=== PATIENT | male | born 1960 | race Caucasian/White ===

== ENCOUNTER 2017-08-17 17:03 | Emergency (ER) | payer SELFPAY ==
--- NOTE | 2017-08-17 18:39 | ER Document Report ---
HPI - HPI Patient complains to provider of: Dental infection Pain Level: 4 Context: Patient is a 57-year-old male complaining of pain and swelling to his left upper jaw. Patient has a remnant of a tooth #14. Associated Symptoms: None Exacerbated by: Food Relieved by: Denies Similar symptoms previously: No Recently seen / treated by doctor: No - ROS Systems Reviewed and Negative: Yes All other systems reviewed and negative - CONSTITUTIONAL Constitutional: DENIES: Fever, Chills Past Medical History - General Information source: Patient - Social History Smoking Status: Current Every Day Smoker Frequency of alcohol use: None Drug Abuse: None Lives with: Family Family History: Reviewed & Not Pertinent Patient has suicidal ideation: No Patient has homicidal ideation: No Pulmonary Medical History: Reports: Hx COPD - Probable secondary to extensive smoking history Renal/ Medical History: Denies: Hx Peritoneal Dialysis Musculoskeltal Medical History: Reports Hx Arthritis, Reports Hx Musculoskeletal Deformity, Reports Hx Musculoskeletal Trauma Traumatic Medical History: Reports: Hx Fractures - Bilateral hips Past Surgical History: Reports: Hx Orthopedic Surgery - fx femur - Immunizations Hx Diphtheria, Pertussis, Tetanus Vaccination: Yes Hx Pneumococcal Vaccination: 03/21/00 Vertical Provider Document - CONSTITUTIONAL Agree With Documented VS: Yes Exam Limitations: No Limitations - INFECTION CONTROL TRAVEL OUTSIDE OF THE [place] IN LAST 30 DAYS: No - HEENT HEENT: Atraumatic, PERRLA Mouth Diagram: 1 - Gingival pain and swelling. No abscess. Advanced decay - NECK Neck: Normal Inspection, Supple - RESPIRATORY Respiratory: Breath Sounds Normal - CARDIOVASCULAR Cardiovascular: Regular Rate, Regular Rhythm - NEURO Level of Consciousness: Awake, Alert, Appropriate Course - Re-evaluation Re-evalutation: 08/17/17 18:36 History and physical are consistent with a dental infection. No abscess is visible at this time. Patient having no difficulty swallowing or talking. Patient is afebrile no signs of sepsis - Vital Signs Vital signs: Temp Pulse Resp BP Pulse Ox 98.9 F 92 20 119/69 91 L 08/17/17 17:14 08/17/17 17:14 08/17/17 17:14 08/17/17 17:14 08/17/17 17:14 Discharge - Discharge Clinical Impression: Dental infection Condition: Stable Disposition: HOME, SELF-CARE Instructions: [facility], Penicillin V K ([facility]), Oral Narcotic Medication ([facility]), Toothache ([facility]) Additional Instructions: Please take medications as prescribed Follow-up with dental for further evaluation and treatment Prescriptions: Oxycodone HCl/Acetaminophen [Percocet 5-325 mg Tablet] 1 - 2 tab PO Q4H PRN #12 tablet PRN Reason: Penicillin V Potassium [Penicillin Vk 500 mg Tablet] 500 mg PO QID #28 tablet Referrals: ILENE MILLER MD [Primary Care Provider] - Follow up as needed
[2017-08-17] MEDS ORDERED: OXYCODONE-ACETAMINOPHEN 5-325 MG TABLET PO ONE (18:42)
[2017-08-17] MEDS ORDERED: PENICILLIN V POTASSIUM 500 MG TABLET PO ONE (18:42)
[2017-08-17 18:50] VITALS: BP 129/75
== END 2017-08-17 18:54 | disposition home or self-care (01) ==
LOC: ER 17:03
DX: K04.7 Periapical abscess without sinus (principal); F17.200 Nicotine dependence, unspecified, uncomplicated; J44.9 Chronic obstructive pulmonary disease, unspecified
CPT/HCPCS: 99282

== ENCOUNTER 2017-11-22 13:55 | Emergency (ER) | payer SELFPAY ==
[2017-11-22] MEDS ORDERED: KETOROLAC TROMETHAMINE INJ/PF 30 MG/1 ML SDV IV ONE (14:53)
[2017-11-22 15:11] LABS: ABSOLUTE EOSINOPHILS # (AUTO) 0.1 10^3/uL (0.0-0.6); ABSOLUTE LYMPHOCYTES (AUTO) 1.5 10^3/uL (0.5-4.7); ABSOLUTE MONOCYTES (AUTO) 0.6 10^3/uL (0.1-1.4); ABSOLUTE NEUT (AUTO) 5.2 10^3/uL (1.7-8.2); BASOPHILS % (AUTO) 0.4 % (0-2); EOSINOPHILS % (AUTO) 1.6 % (0-6); HEMATOCRIT 47.2 % (37.9-51.0); HEMOGLOBIN 16.1 g/dL (13.5-17.0); LYMPHOCYTES % (AUTO) 20.1 % (13-45); MEAN CORPUSCULAR HEMOGLOBIN 31.9 pg (27.0-33.4); MEAN CORPUSCULAR HGB CONC 34.1 g/dL (32.0-36.0); MEAN CORPUSCULAR VOLUME 94 fl (80-97); MONOCYTES % (AUTO) 8.2 % (3-13); PLATELET COUNT 209 10^3/uL (150-450); RED BLOOD COUNT 5.05 10^6/uL (4.35-5.55); RED CELL DISTRIBUTION WIDTH 14.2 % (11.5-14.0); SEGMENTED NEUTROPHILS % (AUTO) 69.7 % (42-78); TOTAL CELLS COUNTED % (AUTO) 100 %; WHITE BLOOD COUNT 7.5 10^3/uL (4.0-10.5)
[2017-11-22 15:30] LABS: ANION GAP 10 (5-19); BLOOD UREA NITROGEN 13 mg/dL (7-20); CALCIUM 9.5 mg/dL (8.4-10.2); CARBON DIOXIDE 30 mmol/L (22-30); CHLORIDE 102 mmol/L (98-107); GLUCOSE 101 mg/dL (75-110); POTASSIUM 3.9 mmol/L (3.6-5.0)
[2017-11-22 15:38] LABS: APPEARANCE,URINE SLIGHTLY-CLOUDY; BILIRUBIN,URINE NEGATIVE (NEGATIVE); COLOR,URINE YELLOW; GLUCOSE, URINE NEGATIVE (NEGATIVE); KETONES,URINE NEGATIVE (NEGATIVE); LEUKOCYTE ESTERASE,URINE NEGATIVE (NEGATIVE); NITRITE,URINE NEGATIVE (NEGATIVE); PROTEIN,URINE NEGATIVE (NEGATIVE); URINE SPECIFIC GRAVITY 1.021
--- NOTE | 2017-11-22 16:06 | ER Document Report ---
ED General - General Chief Complaint: Testicular Swelling Stated Complaint: RIGHT TESTICULAR PAIN, SWELLING Time Seen by Provider: 11/22/17 14:31 TRAVEL OUTSIDE OF THE [place] IN LAST 30 DAYS: No - HPI Notes: 57-year-old male presents with progressively worsening right testicular swelling and pain for the past 3 days. Denies injury. Pain radiates into groin. Denies any penile discharge. No pain with urination or blood in urine. No fevers or chills. No new sexual partners. No similar symptoms in the past. - Related Data Allergies/Adverse Reactions: No Known Allergies Allergy (Verified 11/22/17 14:04) Past Medical History - Social History Smoking Status: Never Smoker Chew tobacco use (# tins/day): No Frequency of alcohol use: None Drug Abuse: None Family History: Reviewed & Not Pertinent Patient has suicidal ideation: No Patient has homicidal ideation: No Pulmonary Medical History: Reports: Hx COPD - Probable secondary to extensive smoking history Renal/ Medical History: Denies: Hx Peritoneal Dialysis Musculoskeletal Medical History: Reports Hx Arthritis, Reports Hx Musculoskeletal Deformity, Reports Hx Musculoskeletal Trauma Traumatic Medical History: Reports: Hx Fractures - Bilateral hips Past Surgical History: Reports: Hx Orthopedic Surgery - fx femur - Immunizations Hx Diphtheria, Pertussis, Tetanus Vaccination: Yes Hx Pneumococcal Vaccination: 03/21/00 Review of Systems - Review of Systems Notes: Constitutional: Negative for fever. HENT: Negative for sore throat. Eyes: Negative for visual changes. Cardiovascular: Negative for chest pain. Respiratory: Negative for shortness of breath. Gastrointestinal: Negative for abdominal pain, vomiting or diarrhea. Genitourinary: Negative for dysuria. Positive for right testicular pain and swelling Musculoskeletal: Negative for back pain. Skin: Negative for rash. Neurological: Negative for headaches, weakness or numbness. 10 point ROS negative except as marked above and in HPI. Physical Exam - Vital signs Vitals: Temp Pulse Resp BP Pulse Ox 98.2 F 88 20 118/68 92 11/22/17 14:23 11/22/17 14:23 11/22/17 14:23 11/22/17 14:23 11/22/17 14:23 - Notes Notes: PHYSICAL EXAMINATION: GENERAL: Well-appearing, well-nourished and in no acute distress. HEAD: Atraumatic, normocephalic. EYES: Pupils equal round and reactive to light, extraocular movements intact, conjunctiva are normal. ENT: nares patent, oropharynx clear without exudates. Moist mucous membranes. NECK: Normal range of motion, supple without lymphadenopathy LUNGS: Breath sounds clear to auscultation bilaterally and equal. No wheezes rales or rhonchi. HEART: Regular rate and rhythm, no chest wall tenderness ABDOMEN: Soft, mild right lower quadrant and inguinal tenderness, normoactive bowel sounds. No guarding, no rebound. No masses appreciated. : Enlarged right testicle compared to left. No scrotal swelling or edema. No warmth or erythema. No obvious epididymal pain. Normal testicular lie. No penile discharge or erythema. EXTREMITIES: Normal range of motion, no pitting or edema. No cyanosis. NEUROLOGICAL: Cranial nerves grossly intact. Normal speech, normal gait. Normal sensory and motor exams. PSYCH: Normal mood, normal affect. SKIN: Warm, Dry, normal turgor, no rashes or lesions noted. Course - Re-evaluation Re-evalutation: 11/22/17 16:51 Laboratory 11/22/17 11/22/17 11/22/17 14:54 14:54 14:54 WBC 7.5 RBC 5.05 Hgb 16.1 Hct 47.2 MCV 94 MCH 31.9 MCHC 34.1 RDW 14.2 H Plt Count 209 Seg Neutrophils % 69.7 Lymphocytes % 20.1 Monocytes % 8.2 Eosinophils % 1.6 Basophils % 0.4 Absolute Neutrophils 5.2 Absolute Lymphocytes 1.5 Absolute Monocytes 0.6 Absolute Eosinophils 0.1 Absolute Basophils 0.0 Sodium 142.0 Potassium 3.9 Chloride 102 Carbon Dioxide 30 Anion Gap 10 BUN 13 Creatinine 0.57 Est GFR ( Amer) > 60 Est GFR (Non-Af Amer) > 60 Glucose 101 Calcium 9.5 Urine Color YELLOW Urine Appearance SLIGHTLY-CLOUDY Urine pH 5.0 Ur Specific [place] 1.021 Urine Protein NEGATIVE Urine Glucose (UA) NEGATIVE Urine Ketones NEGATIVE Urine Blood SMALL H Urine Nitrite NEGATIVE Urine Bilirubin NEGATIVE Urine Urobilinogen 2.0 H Ur Leukocyte Esterase NEGATIVE Urine WBC (Auto) 2 Urine RBC (Auto) 1 Urine Mucus (Auto) MANY Urine Ascorbic Acid NEGATIVE Scrotum Ultrasound 11/22/17 14:35 IMPRESSION: Moderate right hydrocele 1.2 cm right epididymal cyst No ultrasound evidence of testicular torsion No evidence of torsion or infection. Given urology follow-up. Pain improved. At this time will discharge with return precautions and follow-up recommendations. Verbal discharge instructions given a the bedside and opportunity for questions given. Medication warnings reviewed. Patient is in agreement with this plan and has verbalized understanding of return precautions and the need for primary care follow-up in the next 24-72 hours. Voice dictation software was used. Chart was reviewed, but errors may exist. - Vital Signs Vital signs: Temp Pulse Resp BP Pulse Ox 98.0 F 85 18 115/65 100 11/22/17 16:29 11/22/17 16:29 11/22/17 16:29 11/22/17 16:29 11/22/17 16:29 - Laboratory Result Diagrams: 11/22/17 14:54 11/22/17 14:54 Laboratory results interpreted by me: 11/22/17 11/22/17 14:54 14:54 RDW 14.2 H Urine Blood SMALL H Urine Urobilinogen 2.0 H Discharge - Discharge Clinical Impression: Epididymal cyst Hydrocele Qualifiers: Hydrocele type: unspecified Qualified Code(s): N43.3 - Hydrocele, unspecified Condition: Stable Disposition: HOME, SELF-CARE Instructions: Hydrocele ([facility]) Additional Instructions: Follow-up with urology for further recommendations. Return for worsening or concerning symptoms. Take naproxen as needed for pain. Referrals: ILENE MILLER MD [Primary Care Provider] - Follow up as needed ANDREAS BALLESTEROS MD [[facility]] - Follow up in 3-5 days
[2017-11-22 16:30] VITALS: BP 115/65
--- NOTE | 2017-11-22 16:42 | RADIOLOGY REPORT (SQ) ---
EXAM DESCRIPTION: U/S SCROTUM W/DOPPLER COMPLETED DATE/TIME: 11/22/2017 4:33 pm REASON FOR STUDY: Right testicular pain and swelling COMPARISON: None. TECHNIQUE: Static and realtime barnes scale imaging of the scrotum and testes. Selected color Doppler and spectral images recorded to document blood flow. LIMITATIONS: None. FINDINGS: RIGHT: TESTICLE: Normal size, 4.8 x 4.3 x 3.2 cm in size. Normal echotexture. Normal blood flow. No mass. EPIDIDYMIS: 1.2 cm epididymal cyst. Otherwise unremarkable HYDROCELE OR VARICOCELE: Moderate hydrocele HERNIA OR EXTRA-TESTICULAR MASS: No. OTHER: No other significant finding. LEFT: TESTICLE: Normal size, 3.9 x 3.2 x 2.4 cm in size. Normal echotexture. Normal blood flow. No mass. EPIDIDYMIS: Normal. HYDROCELE OR VARICOCELE: Small hydrocele HERNIA OR EXTRA-TESTICULAR MASS: No. OTHER: No other significant finding. IMPRESSION: Moderate right hydrocele 1.2 cm right epididymal cyst No ultrasound evidence of testicular torsion TECHNICAL DOCUMENTATION: JOB ID: [id number]- All Rights Reserved Reading location - IP/workstation name: [email or web address]
== END 2017-11-22 17:17 | disposition home or self-care (01) ==
LOC: ER 13:55
DX: N50.3 Cyst of epididymis (principal); N43.3 Hydrocele, unspecified; R10.813 Right lower quadrant abdominal tenderness
CPT/HCPCS: 99284; 96374; 36415; 85025; 80048; 81001; 76870; 93976; J1885

== ENCOUNTER 2018-07-09 10:02 | Emergency (ER) | payer SELFPAY ==
[2018-07-09] MEDS ORDERED: ONDANSETRON HCL INJ/PF 4 MG/2 ML SDV IV ONE (10:19)
--- NOTE | 2018-07-09 10:22 | ER Document Report ---
ED Medical Screen (RME) - General Chief Complaint: Abdominal Pain Stated Complaint: RIGHT KNEE PAIN Time Seen by Provider: 07/09/18 10:11 Primary Care Provider: ILENE MILLER MD [Primary Care Provider] - Follow up as needed Mode of Arrival: Ambulatory Information source: Patient Notes: Patient presents complaining of right knee pain for the past 2 days. Patient reports fever of 101-102 2 days ago. Patient has had nausea with retching over this time. Patient denies any injury to the knee. Patient complains of redness overlying the right knee and to the right upper thigh area. Patient does complain of some generalized lower abdominal pain. Patient does have a history of a AAA, hypertension, COPD. I have greeted and performed a rapid initial assessment of this patient. A comprehensive ED assessment and evaluation of the patient, analysis of test results and completion of the medical decision making process will be conducted by additional ED providers. TRAVEL OUTSIDE OF THE [place] IN LAST 30 DAYS: No - Related Data Allergies/Adverse Reactions: No Known Allergies Allergy (Verified 07/09/18 10:03) Past Medical History - Social History Chew tobacco use (# tins/day): No Frequency of alcohol use: None Drug Abuse: None - Past Medical History Cardiac Medical History: Reports: Hx Hypertension Pulmonary Medical History: Reports: Hx COPD - Probable secondary to extensive smoking history Renal/ Medical History: Denies: Hx Peritoneal Dialysis Musculoskeltal Medical History: Reports Hx Arthritis, Reports Hx Musculoskeletal Deformity, Reports Hx Musculoskeletal Trauma Traumatic Medical History: Reports: Hx Fractures - Bilateral hips Past Surgical History: Reports: Hx Orthopedic Surgery - fx femur bilateral - Immunizations Hx Diphtheria, Pertussis, Tetanus Vaccination: Yes Physical Exam - Vital signs Vitals: Temp Pulse Resp BP Pulse Ox 97.3 F 86 18 99/66 L 96 07/09/18 10:07 07/09/18 10:07 07/09/18 10:07 07/09/18 10:07 07/09/18 10:07 - Extremities General lower extremity: Tender - Right knee tenderness with overlying erythema and papular skin lesions. Patient with large erythematous tender lesion to right medial thigh. Course - Vital Signs Vital signs: Temp Pulse Resp BP Pulse Ox 97.3 F 86 18 99/66 L 96 07/09/18 10:07 07/09/18 10:07 07/09/18 10:07 07/09/18 10:07 07/09/18 10:07 Doctor's Discharge - Discharge Referrals: ILENE MILLER MD [Primary Care Provider] - Follow up as needed
[2018-07-09 10:56] LABS: ABSOLUTE LYMPHOCYTES (AUTO) 1.4 10^3/uL (0.5-4.7); ABSOLUTE MONOCYTES (AUTO) 0.7 10^3/uL (0.1-1.4); ABSOLUTE NEUT (AUTO) 5.8 10^3/uL (1.7-8.2); BASOPHILS % (AUTO) 0.4 % (0-2); EOSINOPHILS % (AUTO) 0.6 % (0-6); HEMATOCRIT 47.4 % (37.9-51.0); HEMOGLOBIN 16.5 g/dL (13.5-17.0); LYMPHOCYTES % (AUTO) 17.6 % (13-45); MEAN CORPUSCULAR HEMOGLOBIN 32.9 pg (27.0-33.4); MEAN CORPUSCULAR HGB CONC 34.9 g/dL (32.0-36.0); MEAN CORPUSCULAR VOLUME 94 fl (80-97); MONOCYTES % (AUTO) 9.3 % (3-13); PLATELET COUNT 205 10^3/uL (150-450); RED BLOOD COUNT 5.03 10^6/uL (4.35-5.55); RED CELL DISTRIBUTION WIDTH 14.4 % (11.5-14.0); SEGMENTED NEUTROPHILS % (AUTO) 72.1 % (42-78); TOTAL CELLS COUNTED % (AUTO) 100 %
[2018-07-09 10:59] LABS: APPEARANCE,URINE SLIGHTLY-CLOUDY; BILIRUBIN,URINE SMALL (NEGATIVE); COLOR,URINE AMBER; GLUCOSE, URINE NEGATIVE (NEGATIVE); KETONES,URINE TRACE mg/dL (NEGATIVE); LEUKOCYTE ESTERASE,URINE NEGATIVE (NEGATIVE); NITRITE,URINE NEGATIVE (NEGATIVE); PROTEIN,URINE 30 mg/dL (NEGATIVE); URINE SPECIFIC GRAVITY 1.028
[2018-07-09 11:17] LABS: ALANINE AMINOTRANSFERASE 18 U/L (21-72); ALKALINE PHOSPHATASE 69 U/L (38-126); ANION GAP 8 (5-19); ASPARTATE AMINO TRANSFERASE 17 U/L (17-59); BILIRUBIN,DIRECT 0.4 mg/dL (0.0-0.4); BILIRUBIN,TOTAL 0.5 mg/dL (0.2-1.3); BLOOD UREA NITROGEN 16 mg/dL (7-20); CALCIUM 9.4 mg/dL (8.4-10.2); CARBON DIOXIDE 30 mmol/L (22-30); CHLORIDE 98 mmol/L (98-107); GLUCOSE 118 mg/dL (75-110); POTASSIUM 4.3 mmol/L (3.6-5.0); SODIUM 135.9 mmol/L (137-145); TOTAL PROTEIN 7.2 g/dL (6.3-8.2)
--- NOTE | 2018-07-09 11:18 | RADIOLOGY REPORT (SQ) ---
EXAM DESCRIPTION: KNEE RIGHT 4 VIEWS COMPLETED DATE/TIME: 07/09/2018 11:11 am REASON FOR STUDY: r knee pain COMPARISON: None. NUMBER OF VIEWS: Four views. TECHNIQUE: AP, lateral, and both oblique radiographic images acquired of the right knee. LIMITATIONS: None. FINDINGS: MINERALIZATION: Osteopenia. BONES: No acute fracture. IM [place] identified in the distal femur. JOINT: Possible loose bodies in the joint. SOFT TISSUES: Marked prepatellar soft tissue swelling. OTHER: No other significant finding. IMPRESSION: Marked prepatellar soft tissue swelling. Possible intra-articular loose bodies. TECHNICAL DOCUMENTATION: JOB ID: [id number] [employer]- All Rights Reserved Reading location - IP/workstation name: [email or web address]
[2018-07-09] MEDS ORDERED: CLINDAMYCIN 600 MG/D5W RTU 600 MG/50 ML RTUPB IV ONE (11:26)
--- NOTE | 2018-07-09 11:33 | ER Document Report ---
ED General - General Chief Complaint: Abdominal Pain Stated Complaint: RIGHT KNEE PAIN Time Seen by Provider: 07/09/18 10:11 Primary Care Provider: ILENE MILLER MD [Primary Care Provider] - Follow up as needed Mode of Arrival: Ambulatory TRAVEL OUTSIDE OF THE [place] IN LAST 30 DAYS: No - HPI Notes: Patient is a 58-year-old male with a history of hypertension who presents to the emergency department complaining of right knee redness and swelling that began 3 days ago. Patient also states that he noticed an area of redness and soreness to his right proximal medial thigh. Patient states that he has not noticed any streaking. He had one episode of vomiting on Tuesday, but nothing since then. He has been able to eat and drink without difficulty. He is urinating normally and having normal bowel movements. He is unaware of any insect bite or tick bite. Patient states that he is not in the [place] or in tall grass. Denies drug allergies. No h/o MRSA. Denies any headache, fever, neck pain, URI, sore throat, chest pain, palpitations, syncope, cough, shortness of breath, wheeze, dyspnea, abdominal pain, nausea/vomiting/diarrhea, urinary retention, dysuria, hematuria. - Related Data Allergies/Adverse Reactions: No Known Allergies Allergy (Verified 07/09/18 10:03) Past Medical History - General Information source: Patient - Social History Smoking Status: Current Every Day Smoker Chew tobacco use (# tins/day): No Frequency of alcohol use: None Drug Abuse: None Family History: Reviewed & Not Pertinent Patient has suicidal ideation: No Patient has homicidal ideation: No - Past Medical History Cardiac Medical History: Reports: Hx Hypertension Pulmonary Medical History: Reports: Hx COPD - Probable secondary to extensive smoking history Renal/ Medical History: Denies: Hx Peritoneal Dialysis Musculoskeletal Medical History: Reports Hx Arthritis, Reports Hx Musculoskeletal Deformity, Reports Hx Musculoskeletal Trauma Traumatic Medical History: Reports: Hx Fractures - Bilateral hips Past Surgical History: Reports: Hx Orthopedic Surgery - fx femur bilateral - Immunizations Hx Diphtheria, Pertussis, Tetanus Vaccination: Yes Hx Pneumococcal Vaccination: 03/21/00 Review of Systems - Review of Systems -: Yes All other systems reviewed and negative Physical Exam - Vital signs Vitals: Temp Pulse Resp BP Pulse Ox 97.3 F 86 18 99/66 L 96 07/09/18 10:07 07/09/18 10:07 07/09/18 10:07 07/09/18 10:07 07/09/18 10:07 - Notes Notes: PHYSICAL EXAMINATION: GENERAL: Well-appearing, well-nourished and in no acute distress. LUNGS: Breath sounds clear to auscultation bilaterally and equal. No wheezes rales or rhonchi. HEART: Regular rate and rhythm without murmurs, rubs, gallops. Musculoskeletal: Rt knee: No obvious ecchymosis, effusion, or deformity. FROM to passive/active and flexion >90 w/o difficulty or tenderness. Strength 5+/5. N/V intact distal. No bony tenderness. Ligamentous grossly stable, limited exam with larger leg size. Cristobal grossly negative. Patellar grind negative. No calf tenderness. + erythema and warmth pre-patellar on exam. No fluctuance or streaks. US utilized which did not show any abscess/fluid pocket. N/V intact distal. Rt thigh: there is a macular mildly erythemic area noted to the anteromedial thigh with + tenderness (approx 6"x3") and warmth. No central clearing or bull's eye appearance. No flucutance noted or abscess. US was utilized and did not reveal any abscess/fluid pocket. Extremities: No cyanosis, clubbing, or edema b/l. Peripheral pulses 2+. Capillary refill less than 3 seconds. Brianna neg b/l. NEUROLOGICAL: Normal speech, normal gait. Normal sensory, motor exams PSYCH: Normal mood, normal affect. SKIN: Warm, Dry, normal turgor, no rashes or lesions noted. Course - Re-evaluation Re-evalutation: 07/09/18 Patient is an afebrile, well-hydrated, 58-year-old male who presents to the ED with cellulitis to the rt medial anterior thigh and rt prepatellar area. Vitals are acceptable without any significant tachycardia, tachypnea, or hypoxia. PE is otherwise unremarkable for any neurovascular compromise, obvious tendon/ligament rupture, obvious fracture/dislocation, septic joint. X-ray was unremarkable for any acute pathology aside from pre-patellar swelling. Pt is able to move his knee through ROM w/o difficulty. US utilized and did not revea l any fluid pocket in either area of suspected cellulitis. No I&D warranted at this time. Patient is nontoxic-appearing. Skin borders marked and strict instructions reviewed. Clinda IV given today. CBC/CMP unremarkable. ESR/CRP elevated. UA unremarkable. No other labs or imaging warranted at this time based on H&P. Rx for keflex/bactrim. Conservative measures otherwise for symptoms. Recheck with your PCM in 2 days. Consider consult orthopedics. Return to the ED with any worsening/concerning symptoms otherwise as reviewed in discharge. Patient is in agreement. Reviewed with Dr. Liao who is in agreement with dispo/plan. - Vital Signs Vital signs: Temp Pulse Resp BP Pulse Ox 97.3 F 86 18 99/66 L 96 07/09/18 10:07 07/09/18 10:07 07/09/18 10:07 07/09/18 10:07 07/09/18 10:07 - Laboratory Result Diagrams: 07/09/18 10:40 07/09/18 10:40 Laboratory results interpreted by me: 07/09/18 07/09/18 07/09/18 10:40 10:40 10:40 RDW 14.4 H ESR 39 H Sodium 135.9 L Glucose 118 H ALT 18 L C-Reactive Protein 88.0 H Urine Protein 30 H Urine Ketones TRACE H Urine Bilirubin SMALL H Urine Urobilinogen 4.0 H Discharge - Discharge Clinical Impression: Cellulitis of right leg Condition: Stable Disposition: HOME, SELF-CARE Additional Instructions: Keep the skin clean Wash with soap and water Tylenol/ibuprofen if needed Triple antibiotic ointment daily Take medication as directed Monitor for any worsening symptoms Recheck with your PCM in 2 days* Return to the ED with any worsening symptoms and/or development of fever, headache, chest pain, palpitations, syncope, shortness of breath, trouble breathing, abdominal pain, n/v/d, abscess, purulent discharge, red streaks, worsening swelling, or other worsening symptoms that are concerning to you. Prescriptions: Cephalexin Monohydrate [Keflex 500 mg Capsule] 500 mg PO TID #30 capsule Sulfamethoxazole/Trimethoprim [Bactrim Ds Tablet] 1 each PO BID #20 tablet Forms: Smoking Cessation Education Referrals: ILENE MILLER MD [Primary Care Provider] - 07/11/18
[2018-07-09 11:34] LABS: ERYTHROCYTE SEDIMENTATION RATE 39 mm/hr (0-20)
[2018-07-09 12:20] VITALS: BP 104/51
== END 2018-07-09 12:20 | disposition home or self-care (01) ==
LOC: ER 10:02
DX: L03.115 Cellulitis of right lower limb (principal); M25.561 Pain in right knee; I10 Essential (primary) hypertension; F17.200 Nicotine dependence, unspecified, uncomplicated
CPT/HCPCS: 99284; 96375; 96365; 36415; 85025; 85652; 86140; 80053; 81001; 73564; J2405